=== PATIENT | female | born 1980 ===

== ENCOUNTER 2018-03-14 20:53 | Emergency (ER) | payer BC | END 2018-03-14 21:52 | disposition home or self-care (01) | LOC: ERS 20:53 | DX: S01.01XA Laceration without foreign body of scalp, initial encounter (principal); E03.9 Hypothyroidism, unspecified; F32.9 Major depressive disorder, single episode, unspecified; Z79.899 Other long term (current) drug therapy; W22.8XXA Striking against or struck by other objects, initial encounter | CPT/HCPCS: 99282 ==